=== PATIENT | female | born 1940 | race Caucasian/White ===

== ENCOUNTER 2023-12-03 19:06 | Emergency (ER) | payer MEDICARE, OTHER ==
[~2023-12-03] VITALS: Ht 149.9 cm; Wt 57.6 kg
[2023-12-03 19:21] VITALS: BP_SYST 177; PULSE 70; RESP 16; TEMP 97; O2SAT 99
== END 2023-12-03 20:10 | disposition left against medical advice (07) ==
LOC: SED 19:06
DX: M79.601 Pain in right arm (principal); Z53.21 Procedure and treatment not carried out due to patient leaving prior to being seen by health care provider
CPT/HCPCS: 99281